=== PATIENT | male | born 1980 | race Caucasian/White ===

== ENCOUNTER 2018-12-11 12:19 | Emergency (ER) | payer OTHER ==
[~2018-12-11] VITALS: Ht 188 cm; Wt 97.1 kg
== END 2018-12-11 16:53 | disposition home or self-care (01) ==
LOC: ER 12:19
DX: T58.8X1A Toxic effect of carbon monoxide from other source, accidental (unintentional), initial encounter (principal); T65.891A Toxic effect of other specified substances, accidental (unintentional), initial encounter; T52.3X1A Toxic effect of glycols, accidental (unintentional), initial encounter; Y92.520 Airport as the place of occurrence of the external cause